=== PATIENT | male | born 1980 | race American Indian/Alaskan Native ===

== ENCOUNTER 2018-02-08 18:17 | Emergency (ER) | payer OTHER ==
[2018-02-08] MEDS ORDERED: ASPIRIN PO ONE (18:34)
[2018-02-08 18:53] LABS: Basophils % (Auto) 0.2 % (0.0-1.8); Eosinophils % (Auto) 0.1 % (0.0-4.3); Hematocrit 43.9 % (35.5-45.6); Hemoglobin 13.9 gm/dl (11.8-15.2); Lymphocytes # (Auto) 0.9 K/mm3 (1.2-5.4); Mean Corpuscular HGB Conc 32 % (32-34); Mean Corpuscular Hemoglobin 27 pg (28-32); Mean Corpuscular Volume 85 fl (84-94); Monocytes # (Auto) 0.7 K/mm3 (0.0-0.8); Monocytes % (Auto) 5.9 % (0.0-7.3); Platelet Count 218 K/mm3 (140-440); Red Blood Count 5.18 M/mm3 (3.65-5.03); Red Cell Distribution Width 13.2 % (13.2-15.2)
[2018-02-08 19:13] LABS: BUN/Creatinine Ratio 7; Blood Urea Nitrogen 6 mg/dL (9-20); Calcium 8.7 mg/dL (8.4-10.2); Hemolysis Index 10
[2018-02-08 21:17] VITALS: BP 140/91
--- NOTE | 2018-02-08 21:22 | XRay Report ---
FINAL REPORT EXAM: XR CHEST 1V AP HISTORY: cp TECHNIQUE: Frontal portable upright chest x-ray Comparison: None FINDINGS: Heart size is normal. Lungs are clear and well expanded without focal infiltrate or consolidation. No pneumothorax. Imaged axial skeleton is unremarkable. IMPRESSION: No acute cardiopulmonary disease.
[2018-02-08] MEDS ORDERED: TORADOL IV ONE (22:16)
[2018-02-08] MEDS ORDERED: FLEXERIL PO ONE (22:17)
[2018-02-08] MEDS ORDERED: TESSALON PERLES PO ONE (22:33)
[2018-02-08] MEDS ORDERED: LIDOCAINE VISCOUS 2% PO ONE (22:33)
--- NOTE | 2018-02-08 22:37 | Emergency Department Report ---
HPI - General Chief Complaint: Chest Pain Time Seen by Provider: 02/08/18 21:07 - HPI HPI: The patient is a 37-year-old male presents for evaluation of cold-like symptoms. The patient reports 2 days of a nonproductive cough and soreness of throat, standing in quality, moderate severity, exacerbated with swallowing. He states that greater than 12 hours prior to my evaluation, he developed mild achy bilateral chest pain, elicited with coughing, resolved at rest. He states that believes his chest pain occurred due to recurrent coughing. The patient denies fever, trauma to the chest, dyspnea, syncope, hemoptysis, unilateral leg swelling, recent immobilization, history of DVT or PE, recent cancer, history of familial coagulation disorder. ED Past Medical Hx - Past Medical History Hx Hypertension: Yes Hx CVA: Yes Hx Heart Attack/AMI: Yes Hx Congestive Heart Failure: No Hx Diabetes: No Hx Kidney Stones: Yes Hx Asthma: No Hx COPD: No Additional medical history: Hypercholesterolemia. CAD - Surgical History Hx Coronary Stent: Yes (X 3) Additional Surgical History: kidney stones - Social History Smoking Status: Never Smoker Substance Use Type: Alcohol - Medications Home Medications: Home Medications Medication Instructions Recorded Confirmed Last Taken Type Aspirin [Aspirin BABY CHEW TAB] 81 mg PO QDAY #30 tab.chew NS 08/18/13 02/08/18 Unknown Rx Metoprolol [Lopressor TAB] 50 mg PO BID #60 tablet NS 08/18/13 02/08/18 Unknown Rx Rosuvastatin (Nf) [Crestor] 40 mg PO QHS #30 tablet NS 08/18/13 02/08/18 Unknown Rx Azithromycin [Zithromax Z-MICHAELA] 250 mg PO QDAY #6 tablet 02/08/18 Unknown Rx Cyclobenzaprine HCl [Flexeril 5 MG 5 mg PO Q8HR PRN #10 tab 02/08/18 Unknown Rx TAB] Ezetimibe 10 mg PO DAILY 02/08/18 02/08/18 Unknown History Lisinopril [Zestril TAB] 30 mg PO QDAY 02/08/18 02/08/18 Unknown History Phenylephrine/Dm/Acetaminop/GG 20 ml PO Q4HR PRN #180 liquid 02/08/18 Unknown Rx [Mucinex Pgrs-Ucn-Jfzzaxbinn Lq] ED Review of Systems ROS: Stated complaint: CHEST PAIN Other details as noted in HPI Constitutional: denies: fever ENT:reportys throat pain Respiratory: reports cough denies: shortness of breath Cardiovascular:reports: chest pain Endocrine: denies unexplained weight loss or gain Gastrointestinal: denies: abdominal pain, nausea Genitourinary: denies: dysuria Musculoskeletal: denies: leg swelling Skin: denies: rash Neurological: denies: headache Hematological/Lymphatic: denies: easy bleeding or easy bruising Psych: denies sadness or hopelessness Physical Exam - Physical Exam Vital Signs: Vital Signs 18 04 18:29 21:16 Temperature 98.4 F Pulse Rate 77 61 Respiratory 16 16 Rate Blood Pressure 133/80 Blood Pressure 140/91 [Left] O2 Sat by Pulse 99 95 Oximetry Physical Exam: General: well-nourished, well-developed, no acute distress Head: Normocephalic, atraumatic Eyes: normal sclera ENT: Mucous membranes are pale and dry, mild erythema of the posterior oropharynx present, cobblestoning of the posterior oropharynx Present As Well, No Tonsillar Swelling, Redness or Exudates, No Uvula Deviation Neck: trachea midline, neck supple, No neck stiffness, no cervical adenopathy Respiratory: Breath sounds equal bilaterally, no wheezing, rales, or rhonchi Cardio: S1 and S2 present, no murmurs, rubs, gallops, capillary refill is delayed Abdomen: Normoactive bowel sounds, soft abdomen, no rigidity, no guarding or rebound tenderness Chest WALL/Back: No tenderness to palpation of the chest wall, no CVA tenderness with percussion Musc: No pitting edema Skin: No rash Neuro: no facial drooping, normal speech Psych: Normal affect ED Course Vital Signs 18 04 18:29 21:16 Temperature 98.4 F Pulse Rate 77 61 Respiratory 16 16 Rate Blood Pressure 133/80 Blood Pressure 140/91 [Left] O2 Sat by Pulse 99 95 Oximetry ED Medical Decision Making - Lab Data Result diagrams: 02/08/18 18:36 02/08/18 18:36 - Medical Decision Making The patient was seen and examined by myself. The patient is placed on a bin cleaner and continuous pulse ox. On initial evaluation, the patient was found to be in no distress. EKG was negative for findings suggestive of acute cardiac infarct. Labs and imaging are obtained. The patient was given cough medicine, and medicine for his throat pain and chest pain. Chest x-ray is negative for pneumothorax, focal consolidation, pulmonary vascular congestion, pleural effusion, or other obvious acute cardiopulmonary disease process. Lab results were non-concerning including levels of troponin, WBC, hemoglobin, hematocrit, electrolytes, renal function. The patient was reevaluated and reported that their symptoms were markedly improved. As the patient has a HALEIGH risk score less than 2, and a well's score less than 2, the patient is at low risk of ACS or pulmonary emboli etiology of their symptoms. The patient is stable for discharge with outpatient follow-up. The patient is given follow-up and return instructions. The patient expressed understanding and agreed with the plan. The patient is discharged in stable condition. Critical care attestation.: If time is entered above; I have spent that time in minutes in the direct care of this critically ill patient, excluding procedure time. ED Disposition Clinical Impression: Acute chest pain, Upper respiratory infection, acute Acute pharyngitis, unspecified Qualifiers: Pharyngitis/tonsillitis etiology: unspecified etiology Qualified Code(s): J02.9 - Acute pharyngitis, unspecified Disposition: DC-01 TO HOME OR SELFCARE Is pt being admited?: No Does the pt Need Aspirin: No Condition: Stable Instructions: Chest Pain (ED), Costochondritis (ED), Upper Respiratory Infection (ED), Viral Syndrome (ED) Prescriptions: Azithromycin [Zithromax Z-MICHAELA] 250 mg PO QDAY #6 tablet Cyclobenzaprine HCl [Flexeril 5 MG TAB] 5 mg PO Q8HR PRN #10 tab PRN Reason: Pain Phenylephrine/Dm/Acetaminop/GG [Mucinex Ouet-Chy-Lekbwglbje Lq] 20 ml PO Q4HR PRN #180 liquid PRN Reason: cough and sore throat Referrals: JOHN LALA MD [Primary Care Provider] - 3-5 Days Time of Disposition: 21:34 Heart Score - HEART Score History: Slightly suspicious EKG: Normal Age: < 45 Risk factors: > 3 risk factors or hx of atherosclerotic disease Troponin: < normal limit HEART Score: 2 - Critical Actions Critical Actions: 0-3 pts:0.9-1.7%risk of adverse cardiac event.Candidate for discharge
== END 2018-02-08 22:47 | disposition home or self-care (01) ==
LOC: ED 18:17
DX: R07.89 Other chest pain (principal); J06.9 Acute upper respiratory infection, unspecified; J02.9 Acute pharyngitis, unspecified; I10 Essential (primary) hypertension; Z87.442 Personal history of urinary calculi; E78.00 Pure hypercholesterolemia, unspecified; Z79.82 Long term (current) use of aspirin
CPT/HCPCS: 36415; 71045; 80048; 84484; 85025; 93005; 93010; 96374; 99284; J1885

== ENCOUNTER 2019-11-07 23:34 | Emergency (ER) | payer OTHER ==
[2019-11-08] MEDS ORDERED: cloNIDine 0.2 MG TAB ONE (00:20)
[2019-11-08] MEDS ORDERED: cloNIDine 0.2 MG TAB PO ONE (00:22)
--- NOTE | 2019-11-08 01:00 | Cat Scan Report ---
Examination: CT of the head without contrast Clinical information: Hypertension. Altered mental status. Comparison: None Technical: Multiple axial CT images of the head were obtained without intravenous contrast. Sagittal and coronal reformats were obtained. All CTs at this facility utilize dose reduction techniques inc luding automated exposure control, iterative reconstruction and weight based dosing when appropriate to reduce patient radiation dose to as low as reasonable achievable. Findings: There is no CT evidence of acute intracranial hemorrhage or large territorial infarct. The ventricular system appears normal in size. No extra-axial fluid collection is identified. Evaluation of bony structures demonstrates no evidence of acute bony abnormality. The visualized para nasal sinuses and mastoid air cells appear clear. Impression: 1. No CT evidence of acute intracranial process. Signer Name: Juliet Rice MD Signed: 11/08/2019 12:55 AM Workstation Name: [id number]
--- NOTE | 2019-11-08 06:33 | Emergency Department Report ---
ED General Adult HPI - General Chief complaint: High BP Stated complaint: POSS HIGH BP NUMBNESS LT HAND Time Seen by Provider: 11/08/19 06:10 Source: patient Mode of arrival: Ambulatory Limitations: No Limitations - History of Present Illness Initial comments: 38-year-old male with past medical history hypertension, CAD with stents 3, and elevated cholesterol presents to the hospital complaining of elevated blood pressure and intermittent tingling to left hand since yesterday. Patient has been compliant with his lisinopril 30 minutes daily, metoprolol 50 mg twice a day. Yesterday he went in to see the GI doctor for an appointment at 9 AM to schedule colonoscopy and his blood pressure is 165/ 105. Patient had not yet taken his a.m. blood pressure medications. After 9 AM patient took his lisinopril and his metoprolol and continue to check his blood pressure throughout the day and it was still 170s/90s range so patient took an extra dose lisinopril and his evening dose of metoprolol. Patient states this pressures typically in the 120 systolic. Patient has had intermittent tingling rated 1.5/10 in intensity to left hand that lasted 10-15 seconds at a time throughout the day. He has not had any recurrent tingling sensation since arrival to the ED. Patient denies headache, blurred vision, chest pain, or shortness of breath. Industrial Cook: Dr. Lala. Patient is not have a primary care doctor - Related Data Home Medications Medication Instructions Recorded Confirmed Last Taken Ezetimibe 10 mg PO DAILY 02/08/18 11/08/19 Unknown lisinopriL [Zestril TAB] 30 mg PO QDAY 02/08/18 11/08/19 Unknown Previous Rx's Medication Instructions Recorded Last Taken Type Aspirin [Aspirin BABY CHEW TAB] 81 mg PO QDAY #30 tab.chew NS 08/18/13 11/08/19 Rx Metoprolol [Lopressor TAB] 50 mg PO BID #60 tablet NS 08/18/13 11/07/18 Rx Rosuvastatin (Nf) [Crestor] 40 mg PO QHS #30 tablet NS 08/18/13 11/07/19 Rx Cyclobenzaprine HCl [Flexeril 5 MG 5 mg PO Q8HR PRN #10 tab 02/08/18 Unknown Rx TAB] Allergies Allergy/AdvReac Type Severity Reaction Status Date / Time No Known Allergies Allergy Verified 10/03/15 14:09 ED Review of Systems ROS: Stated complaint: POSS HIGH BP NUMBNESS LT HAND Other details as noted in HPI Comment: All other systems reviewed and negative ED Past Medical Hx - Past Medical History Previous Medical History?: Yes Hx Hypertension: Yes Hx CVA: Yes Hx Heart Attack/AMI: Yes (08/13/2013) Hx Congestive Heart Failure: No Hx Diabetes: No Hx Kidney Stones: Yes Hx Asthma: No Hx COPD: No Additional medical history: Hypercholesterolemia. CAD - Surgical History Past Surgical History?: Yes Hx Coronary Stent: Yes (X 3) Additional Surgical History: kidney stones - Social History Smoking Status: Never Smoker - Medications Home Medications: Home Medications Medication Instructions Recorded Confirmed Last Taken Type Aspirin [Aspirin BABY CHEW TAB] 81 mg PO QDAY #30 tab.chew NS 08/18/13 11/08/19 11/08/19 Rx Metoprolol [Lopressor TAB] 50 mg PO BID #60 tablet NS 08/18/13 11/08/19 11/07/18 Rx Rosuvastatin (Nf) [Crestor] 40 mg PO QHS #30 tablet NS 08/18/13 11/08/19 11/07/19 Rx Cyclobenzaprine HCl [Flexeril 5 MG 5 mg PO Q8HR PRN #10 tab 02/08/18 Unknown Rx TAB] Ezetimibe 10 mg PO DAILY 02/08/18 11/08/19 Unknown History lisinopriL [Zestril TAB] 30 mg PO QDAY 02/08/18 11/08/19 Unknown History ED Physical Exam - General Limitations: No Limitations - Other Other exam information: General: No acute distress Head: Atraumatic Eyes: normal appearance ENT: Moist mucous membranes Neck: Normal appearance, no midline tenderness Chest: Clear to auscultation bilaterally CV: Regular rate and rhythm Abdomen: Soft, normal bowel sounds, nontender, nondistended, no rebound or guarding Back: Normal inspection Extremity: Normal inspection, full range of motion Neuro: Alert O x 3, no facial asymmetry, speech clear, no gross motor sensory deficit Psych: Appropriate behavior Skin: No rash ED Course Vital Signs 11/08/19 11/08/19 00:10 04:00 Temperature 98.2 F 97.6 F Pulse Rate 57 L 59 L Respiratory 18 18 Rate Blood Pressure 179/111 Blood Pressure 100/71 [Left] O2 Sat by Pulse 98 99 Oximetry - Reevaluation(s) Reevaluation #1: 11/08/19 06:34 Patient received clonidine 0.2 mg prior to my evaluate with reduction in blood pressure. Patient is asymptomatic ED Medical Decision Making - Medical Decision Making Patient presents with elevated blood pressure. He took his a.m. doses of medications late. Blood pressure improved with the treatment. Patient's left hand numbness has resolved and patient doesn't have any other neurological deficits. Patient will be referred to his primary care doctor for further blood pressure management and medication adjustment. - Differential Diagnosis hypertensive emergency/urgency Critical Care Time: No Critical care attestation.: If time is entered above; I have spent that time in minutes in the direct care of this critically ill patient, excluding procedure time. ED Disposition Clinical Impression: Hypertension Disposition: DC-01 TO HOME OR SELFCARE Is pt being admited?: No Does the pt Need Aspirin: No Condition: Stable Instructions: Hypertension (ED), How to Take a Blood Pressure (ED) Additional Instructions: Continue your medication as prescribed. Follow-up with your doctor or doctor/clinic provided. Return if symptoms worsen as indicated by your discharge instructions. Referrals: JOHN LALA MD [Staff Physician] - 2-3 Days Time of Disposition: 06:36 - Assessment Assessment Interval: Baseline - Level of Consciousness 1a. Level of Consciousness: alert/keenly responsive - LOC Questions 1b. LOC Questions: answers both correctly - LOC Command 1c. LOC Commands: performs tasks correctly - Best Gaze 2. Best Gaze: normal - Visual 3. Visual: no visual loss - Facial Palsy 4. Facial Palsy: normal symmetrical movement - Motor Arm 5a. Motor Arm Left: no drift 5b. Motor Arm Right: no drift - Motor Leg 6a. Motor Leg Left: no drift 6b. Motor Leg Right: no drift - Limb Ataxia 7. Limb Ataxia: absent - Sensory 8. Sensory: normal - Best Language 9. Best Language: no aphasia - Dysarthria 10. Dysarthria: normal - Extinction and Inattention 11. Extinction/Inattention: no abnormality - Scoring Total Score: 0 Stroke Severity: No Stroke Symptoms
[2019-11-08 06:34] VITALS: BP 117/79
== END 2019-11-08 06:50 | disposition home or self-care (01) ==
LOC: ED 23:34
DX: I10 Essential (primary) hypertension (principal); I25.2 Old myocardial infarction; E78.00 Pure hypercholesterolemia, unspecified; Z95.5 Presence of coronary angioplasty implant and graft; Z86.73 Personal history of transient ischemic attack (TIA), and cerebral infarction without residual deficits; Z79.899 Other long term (current) drug therapy
CPT/HCPCS: 70450